=== PATIENT | female | born 1995 | race African-American/Black ===

== ENCOUNTER 2018-05-02 13:31 | Emergency (ER) | payer MEDICAID ==
[2018-05-02] MEDS ORDERED: IPRATROPIUM/ALBUTEROL 3 ML DEYVIAL ONE (13:36)
[2018-05-02] MEDS ORDERED: ALBUTEROL 3 ML DEYVIAL IH ONE ×3 (13:39→15:50)
[2018-05-02] MEDS ORDERED: IPRATROPIUM/ALBUTEROL 3 ML DEYVIAL IH ONE (13:39)
[2018-05-02] MEDS ORDERED: methylPREDNISolone SOD SUCC 125 MG/2 ML VIAL IVP ONE (13:39)
[2018-05-02] MEDS ORDERED: MAGNESIUM SULF 2 GM/WATER 50 ML IV ONE (13:54)
[2018-05-02] MEDS ORDERED: ALBUTEROL 3 ML DEYVIAL ONE (13:55)
--- NOTE | 2018-05-02 14:04 | EDPHY ---
H & P Stated Complaint: asthma excerbation started monday, no relief with albuterol mdi Time Seen by Provider: 05/02/18 13:36 HPI/ROS: This patient reports a 3 day history of asthma symptoms consisting of wheezing and dyspnea. She reports gradual onset of symptoms but steady increasing in severity despite the frequent use of albuterol inhaler at home. She reports is the worse exacerbation she has ever had. She came in by private vehicle for evaluation today. She ranks her dyspnea as severe. She has associated chest discomfort described as tightness consistent with prior asthma episodes-feels bronchial to her. ROS: Constitutional: No fevers HEENT: No significant coryza. No sinus pain. Pulmonary: 1-2 word dyspnea. No pleuritic pain. No hemoptysis. Cardiovascular: No calf swelling or pain. No lightheadedness GI: No belly pain, nausea or vomiting. Integumentary: No rash 10 point review of symptoms is performed and otherwise negative with exception of pertinent positives and negatives listed in HPI and ROS Source: Patient Exam Limitations: No limitations - Personal History LMP (Females 10-55): Now - Medical/Surgical History PMH: Mild asthma never admitted for it. Other PMH: asthma, - Family History Significant Family History: No pertinent family hx - Social History Smoking Status: Never smoked Alcohol Use: Rarely Drug Use: None - Physical Exam Exam: General Appearance: Pleasant black female in acute respiratory distress Eyes: Pupils equal and round no pallor or injection. ENT, Mouth: Mucous membranes moist. Respiratory: Wheezing and mild rhonchi bilaterally. She has accessory muscle use, 1-2 word dyspnea Cardiovascular: Tachycardic with no murmur gallop or rub. No peripheral edema or calf tenderness Gastrointestinal: Abdomen is soft and nontender, no masses, bowel sounds normal. Neurological: GCS 15 Skin: Warm and dry, no rashes. Musculoskeletal: Neck is supple nontender. Extremities are symmetrical, full range of motion. Psychiatric: Patient is anxious from dyspnea. DIFFERENTIAL DIAGNOSIS: After history and physical exam differential diagnosis was considered for asthma exacerbation, pneumonia, pneumothorax, bronchitis, doubt pulmonary embolism Constitutional: Initial Vital Signs Temperature (C) 37.6 C 05/02/18 13:41 Heart Rate 135 H 05/02/18 13:41 Respiratory Rate 33 H 05/02/18 13:41 Blood Pressure 166/109 H 05/02/18 13:41 O2 Sat (%) 80 L 05/02/18 13:41 O2 Delivery Mode Oxymizer O2 (L/minute) 10 Allergies/Adverse Reactions: No Known Allergies Allergy (Unverified 05/02/18 13:38) Home Medications: Medication Instructions Recorded Albuterol 05/02/18 Guanfacine HCl 05/02/18 Zoloft 100mg (*) 05/02/18 Medical Decision Making - Diagnostics EKG Interpretation: 12 lead EKG performed at 2:56 p.m. Reveals sinus tachycardia at 1:32 a.m. Indication-dyspnea Intervals: Normal throughout [place]: P of 39, QRS of -38, T of 58 Overall assessment sinus tachycardia with left axis deviation Imaging Results: Imaging Impressions Chest X-Ray 05/02/18 13:41 Impression: Patchy airspace and hazy opacities are seen at the right lung base, more prominent than expected for artifact from overlying breast tissue. This is suspicious for underlying pneumonia would correlate with symptoms. Imaging: Discussed imaging studies w/ spice mixer Radiologist ED Course/Re-evaluation: Patient placed on monitor. With nebulized DuoNeb patient's O2 sat improved from 79% to 90s. Treated with 2 more successive albuterol nebs thereafter Solu-Medrol 125 mg IV Magnesium 2 g IV Blood cultures obtained and pending Studies: White count in the high 90s with a left shift, i-STAT metabolic panel normal exception of potassium of 2.9, rapid flu swab was positive for influenza A, POC serum lactate is normal at 1.7 Discussion: Patient presents with findings consistent with severe asthma exacerbation. She is given a total 4 neb treatments with persistent dyspnea and tachypnea to the 30s, heart rate 128 at 3:15 p.m.. She has subjective improvement with less ventilatory effort now. She still has wheezing but there is some increased aeration. Counseled patient regarding the need for admission due the severity for ongoing asthma exacerbation and influenza pneumonia. Patient voices understanding. Initially spoke with Dr. Franci Magdaleno at [facility] but they called back and have no unit beds. I then spoke with Dr. Peres, hospitalist at [facility] accepts patient for transfer to Medical ICU at [facility]. Patient is in agreement with this plan Patient is tolerating face mask O2-10 L with an O2 sat of 94% - Data Points Laboratory Results: Laboratory Results 05/02/18 13:45 05/02/18 05/02/18 05/02/18 14:35 14:34 13:57 WBC RBC Hgb POC Hgb 17.0 gm/dL H gm/dL (12.6-16.3) Hct POC Hct 50 % H % (38-47) MCV MCH MCHC RDW Plt Count MPV Neut % (Auto) Lymph % (Auto) [place] % (Auto) Eos % (Auto) Baso % (Auto) Nucleat RBC Rel Count Absolute Neuts (auto) Absolute Lymphs (auto) Absolute Monos (auto) Absolute Eos (auto) Absolute Basos (auto) Absolute Nucleated RBC Immature Gran % Immature Gran # POC Sodium 139 mEq/L mEq/L 140 mEq/L mEq/L (135-145) (135-145) POC Potassium 2.9 mEq/L L mEq/L 2.4 mEq/L L* mEq/L (3.3-5.0) (3.3-5.0) POC Chloride 103 mEq/L mEq/L 100.0 mEq/L mEq/L (97-110) (97-110) POC Total CO2 21 mEq/L L mEq/L (22-31) POC BUN 9 mg/dL mg/dL 8 mg/dL mg/dL (7-23) (7-23) POC Creatinine 0.7 mg/dL mg/dL 1.0 mg/dL mg/dL (0.6-1.0) (0.6-1.0) POC Glucose 141 mg/dL H mg/dL 113 mg/dL H mg/dL (70-100) (70-100) POC Lactic Acid Alex 1.7 mmol/L mmol/L (0.7-2.1) POC Calcium 9.6 mg/dL mg/dL (8.5-10.4) 05/02/18 13:45 WBC 9.52 10^3/uL H 10^3/uL (3.80-9.50) RBC 5.81 10^6/uL H 10^6/uL (4.18-5.33) Hgb 16.2 g/dL g/dL (12.6-16.3) POC Hgb Hct 48.4 % H % (38.0-47.0) POC Hct MCV 83.3 fL fL (81.5-99.8) MCH 27.9 pg pg (27.9-34.1) MCHC 33.5 g/dL g/dL (32.4-36.7) RDW 13.5 % % (11.5-15.2) Plt Count 356 10^3/uL 10^3/uL (150-400) MPV 9.5 fL fL (8.7-11.7) Neut % (Auto) 86.0 % H % (39.3-74.2) Lymph % (Auto) 9.6 % L % (15.0-45.0) [place] % (Auto) 3.8 % L % (4.5-13.0) Eos % (Auto) 0.0 % L % (0.6-7.6) Baso % (Auto) 0.4 % % (0.3-1.7) Nucleat RBC Rel Count 0.0 % % (0.0-0.2) Absolute Neuts (auto) 8.19 10^3/uL H 10^3/uL (1.70-6.50) Absolute Lymphs (auto) 0.91 10^3/uL L 10^3/uL (1.00-3.00) Absolute Monos (auto) 0.36 10^3/uL 10^3/uL (0.30-0.80) Absolute Eos (auto) 0.00 10^3/uL L 10^3/uL (0.03-0.40) Absolute Basos (auto) 0.04 10^3/uL 10^3/uL (0.02-0.10) Absolute Nucleated RBC 0.00 10^3/uL 10^3/uL (0-0.01) Immature Gran % 0.2 % % (0.0-1.1) Immature Gran # 0.02 10^3/uL 10^3/uL (0.00-0.10) POC Sodium POC Potassium POC Chloride POC Total CO2 POC BUN POC Creatinine POC Glucose POC Lactic Acid Alex POC Calcium Medications Given: Discontinued Medications Albuterol (Proventil Neb) 3 ml IH EDNOW ONE Stop: 05/02/18 13:40 Last Admin: 05/02/18 13:47 Dose: 3 ml Albuterol (Proventil Neb) 3 ml IH EDNOW ONE Stop: 05/02/18 13:56 Last Admin: 05/02/18 14:03 Dose: 3 ml Albuterol/Ipratropium (Duoneb) 3 ml IH EDNOW ONE Stop: 05/02/18 13:40 Last Admin: 05/02/18 13:40 Dose: 3 ml Azithromycin (Zithromax) 500 mg PO EDNOW ONE PRN Reason: Protocol Stop: 05/02/18 14:32 Last Admin: 05/02/18 15:03 Dose: 500 mg Magnesium Sulfate (Magnesium Sulf 2 Gm (Premix)) 50 mls @ 50 mls/hr IV EDNOW ONE Stop: 05/02/18 14:53 Last Admin: 05/02/18 14:01 Dose: 50 mls Ceftriaxone Sodium 2 gm/ (Sodium Chloride) 100 mls @ 200 mls/hr IV EDNOW ONE PRN Reason: Protocol Stop: 05/02/18 14:59 Last Admin: 05/02/18 15:00 Dose: 100 mls Sodium Chloride (Ns) 1,000 mls @ 0 mls/hr IV ONCE ONE; Wide Open PRN Reason: Protocol Stop: 05/02/18 14:34 Last Admin: 05/02/18 14:45 Dose: 1,000 mls Levalbuterol (Xopenex 1.25mg Neb) 1.25 mg IH EDNOW ONE Stop: 05/02/18 14:33 Last Admin: 05/02/18 14:51 Dose: 1.25 mg Methylprednisolone Sodium Succinate (Solu-Medrol) 125 mg IVP EDNOW ONE Stop: 05/02/18 13:40 Last Admin: 05/02/18 13:50 Dose: 125 mg Point of Care Test Results: Chemistry 05/02/18 05/02/18 14:34 13:57 POC Sodium 139 mEq/L mEq/L 140 mEq/L mEq/L (135-145) (135-145) POC Potassium 2.9 mEq/L L mEq/L 2.4 mEq/L L* mEq/L (3.3-5.0) (3.3-5.0) POC Chloride 103 mEq/L mEq/L 100.0 mEq/L mEq/L (97-110) (97-110) POC Total CO2 21 mEq/L L mEq/L (22-31) POC BUN 9 mg/dL mg/dL 8 mg/dL mg/dL (7-23) (7-23) POC Creatinine 0.7 mg/dL mg/dL 1.0 mg/dL mg/dL (0.6-1.0) (0.6-1.0) POC Glucose 141 mg/dL H mg/dL 113 mg/dL H mg/dL (70-100) (70-100) POC Calcium 9.6 mg/dL mg/dL (8.5-10.4) Blood Gas/Lactic Acid-Venous 05/02/18 14:35 POC Lactic Acid Alex 1.7 mmol/L mmol/L (0.7-2.1) ISTAT H&H 05/02/18 14:34 POC Hgb 17.0 gm/dL H gm/dL (12.6-16.3) POC Hct 50 % H % (38-47) Influenza PCR Flu Nasal Swab Collection Date 05/02/18 Influenza A Result Detected Influenza B Result Not Detected Departure - Departure Disposition: Acute Care Hospital Not [facility] Clinical Impression: Hypoxia Asthma exacerbation Qualifiers: Asthma severity: severe Asthma persistence: persistent Qualified Code(s): J45.51 - Severe persistent asthma with (acute) exacerbation Pneumonia Qualifiers: Pneumonia type: due to influenza A virus Laterality: bilateral Lung location: lower lobe of lung Qualified Code(s): J11.00 - Influenza due to unidentified influenza virus with unspecified type of pneumonia Referrals: NONE *PRIMARY CARE P,. [Primary Care Provider] - As per Instructions
[2018-05-02 14:25] LABS: PLATELET COUNT 356 10^3/uL (150-400)
[2018-05-02] MEDS ORDERED: AZITHROMYCIN 250 MG TAB PO ONE (14:31)
[2018-05-02] MEDS ORDERED: LEVALBUTEROL 1.25 MG/3 ML DEYVIAL IH ONE (14:32)
[2018-05-02] MEDS ORDERED: NS 1,000 ML IV ONE (14:33)
[2018-05-02] MEDS ORDERED: ONDANSETRON 4 MG/2 ML VIAL IVP PRN (14:42)
[2018-05-02] MEDS ORDERED: ACETAMINOPHEN 325 MG TAB PO PRN (14:42)
[2018-05-02] MEDS ORDERED: ALBUTEROL 3 ML DEYVIAL IH PRN (14:42)
[2018-05-02] MEDS ORDERED: oxyCODONE IR 5 MG TAB PO PRN (14:42)
[2018-05-02] MEDS ORDERED: ONDANSETRON DISINTEGRATING 4 MG TAB PO PRN (14:42)
[2018-05-02] MEDS ORDERED: NS W/ 20 KCl/L 1,000 ML IV SCH (14:45)
[2018-05-02] MEDS ORDERED: OSELTAMIVIR PHOSPHATE 75 MG CAP PO ONE (15:02)
--- NOTE | 2018-05-02 15:32 | CPEKG ---
Test Reason : OPEN Blood Pressure : / mmHG Vent. Rate : 132 BPM Atrial Rate : 132 BPM P-R Int : 128 ms QRS Dur : 090 ms QT Int : 312 ms P-R-T Axes : 039 -38 058 degrees QTc Int : 463 ms Sinus tachycardia Probable left atrial enlargement Left axis deviation Confirmed by Otis Aguilar ([id number]) on 05/02/2018 3:32:23 PM Referred By: Confirmed By:Otis Aguilar
[2018-05-02] MEDS ORDERED: POTASSIUM CL 20 MEQ/15 ML UDCUP PO ONE (15:33)
[2018-05-02] MEDS ORDERED: IPRATROPIUM/ALBUTEROL 3 ML DEYVIAL IH SCH (16:00)
[2018-05-02] MEDS ORDERED: ACETAMINOPHEN 325 MG TAB PO ONE (16:48)
[2018-05-02 17:01] VITALS: BP 143/92
[2018-05-02 17:30] LABS: INR 1.02 (0.83-1.16); PROTIME(PATIENT) 13.6 SEC (12.0-15.0)
[2018-05-02] MEDS ORDERED: methylPREDNISolone SOD SUCC 125 MG/2 ML VIAL IVP SCH (21:00)
[2018-05-03] MEDS ORDERED: AZITHROMYCIN 250 MG TAB PO SCH (09:00)
== END 2018-05-02 16:58 | disposition short-term general hospital (02) ==
LOC: CED 13:31 → UNDOADMIN 14:37 → CEDHOLD 14:37
DX: J45.51 Severe persistent asthma with (acute) exacerbation (principal); J11.00 Influenza due to unidentified influenza virus with unspecified type of pneumonia; E86.9 Volume depletion, unspecified
CPT/HCPCS: 71045-PO; 80048-PO; 82435-PO; 82565-PO; 82947-PO; 83605-PO; 84132-PO; 84295-PO; 84520-PO; 85014-PO; 96365; J0696; J2930; J3475; J7613